=== PATIENT | male | born 1960 | race Caucasian/White ===

== ENCOUNTER 2025-03-03 14:06 | Day surgery (SDC) | payer MEDICARE ==
[2025-03-03] MEDS: Polymyxin B/Trimethoprim 10 ML Bottle EYERT SCH (14:57)
[2025-03-03] MEDS: Tropicamide 1% Ophth Soln 3 ML Bottle EYERT SCH (15:15)
[2025-03-03] MEDS: Tetracaine HCl/PF 0.5% 4 ML Bottle EYEBOTH SCH (16:00)
[2025-03-03] MEDS: Lidocaine 1% PF 2 ML SDV INJECT SCH (16:32)
[2025-03-03] MEDS: Cefuroxime 10 MG/ML SYRINGE EYERT SCH (16:50)
[2025-03-03] MEDS: Pilocarpine 4% Ophth Soln 15 ML Bot EYERT SCH (16:51)
== END 2025-03-03 17:20 | disposition home or self-care (01) ==
LOC: JD.SDS 14:06
PROVIDERS: ATTEND Ophthalmology
DX: E11.36 Type 2 diabetes mellitus with diabetic cataract (principal); H25.813 Combined forms of age-related cataract, bilateral; H21.81 Floppy iris syndrome; H21.40 Pupillary membranes, unspecified eye; H02.834 Dermatochalasis of left upper eyelid; H02.831 Dermatochalasis of right upper eyelid; H57.813 Brow ptosis, bilateral; H16.103 Unspecified superficial keratitis, bilateral; H16.223 Keratoconjunctivitis sicca, not specified as Sjogren's, bilateral; I10 Essential (primary) hypertension; Z79.899 Other long term (current) drug therapy
CPT/HCPCS: 66982; A9270; J0697; J2003; 00142; J3490; V2632

== ENCOUNTER 2025-03-31 12:22 | Day surgery (SDC) | payer MEDICARE ==
[2025-03-31] MEDS: Cefuroxime 10 MG/ML SYRINGE EYELF SCH (07:27)
[2025-03-31] MEDS: Lidocaine 1% PF 2 ML SDV INJECT SCH (07:27)
[2025-03-31] MEDS: Tetracaine HCl/PF 0.5% 4 ML Bottle EYEBOTH SCH (07:27)
[2025-03-31] MEDS: Pilocarpine 4% Ophth Soln 15 ML Bot EYELF SCH (07:28)
[2025-03-31] MEDS: Polymyxin B/Trimethoprim 10 ML Bottle EYELF SCH (07:28)
[2025-03-31] MEDS: Tropicamide 1% Ophth Soln 3 ML Bottle EYELF SCH (13:10)
== END 2025-03-31 15:31 | disposition home or self-care (01) ==
LOC: JD.SDS 12:22
PROVIDERS: ATTEND Ophthalmology
DX: E11.36 Type 2 diabetes mellitus with diabetic cataract (principal); H25.812 Combined forms of age-related cataract, left eye; H21.81 Floppy iris syndrome; H52.31 Anisometropia; I10 Essential (primary) hypertension; E78.00 Pure hypercholesterolemia, unspecified; Z96.1 Presence of intraocular lens; Z79.84 Long term (current) use of oral hypoglycemic drugs; Z87.891 Personal history of nicotine dependence; Z79.899 Other long term (current) drug therapy
CPT/HCPCS: 66982; A9270; J0697; J3490